=== PATIENT | male | born 1955 | race Caucasian/White ===

== ENCOUNTER → 2019-03-28 10:51 | Outpatient (BNVA) | payer MEDICARE, SELFPAY | PROVIDERS: Family Provider Registered Nurse; PCP Registered Nurse; Referring Provider Psychiatry & Neurology Psychiatry; Visit Provider Nurse Practitioner | DX: F33.41 Major depressive disorder, recurrent, in partial remission (principal); G47.30 Sleep apnea, unspecified | CPT/HCPCS: 99214 ==

== ENCOUNTER 2019-05-20 15:12 | Outpatient (CLI) | payer MEDICARE, SELFPAY ==
--- NOTE | 2019-05-20 15:33 | CT_ITS ---
WS: [id number] CT HEAD NONCONTRAST HISTORY: SWELLING TECHNIQUE: Contiguous axial imaging performed through the brain in 2.5 mm imaging. Bone and soft tiss ue windows. All CT scans at [facility] use at least one of these dose optimization techniq ues: automated exposure control; mA and/or kV adjustment per patient size (includes targeted exams wh ere dose is matched to clinical indication); or iterative reconstruction. DLP: 1058.18 mGycm COMPARISON: None available. No acute intracranial hemorrhage, midline shift or mass effect. No atrophy or prior infarcts or herniation. Ventricles: Normal size with no hydrocephalus. No inferior displacement of cerebellar tonsils. No soft tissue edema. Orbits and globes are negative. Paranasal sinuses: As visualized are clear. Mastoid air cells: Well pneumatized. Calvarium and scalp: Skull is intact with no soft tissue edema or swelling. CT/CT head wo con* [id number] IMPRESSION: Unremarkable noncontrast CT head. No abnormality.
--- NOTE | 2019-05-20 15:33 | CT_ITS ---
WS: [id number] CT NECK WITHOUT CONTRAST HISTORY: SWELLING, LEFT FACIAL/NECK SWELLING TECHNIQUE: Contiguous 5 mm axial images are performed through the neck with intravenous contrast. Sag ittal and coronal reformats are also submitted. All CT scans at [facility] use at least o ne of these dose optimization techniques: automated exposure control; mA and/or kV adjustment per pat ient size (includes targeted exams where dose is matched to clinical indication); or iterative recons truction. CONTRAST: CONTRAST: None DLP: 3091.97 mGycm COMPARISON: None available. Nasopharynx, oropharynx, hypopharynx and larynx are unremarkable. No soft tissue masses or abnormal e nhancement. Torus tubarius and fossa of Rosenmuller and parapharyngeal fat are normal. There are several benign-appearing lymph nodes along the cervical chains, greatest on the LEFT. Level 2 and level 3 lymph nodes with the largest measuring 6 to 7 mm. There is a solid mass in the inferior superficial lobe of the LEFT parotid gland. This mass measures 11 x 13 mm with overlying soft tissue edema and infiltration. This corresponds to the palpable abnorm ality. Small thyroid gland. RIGHT parotid gland is negative. Cervical spondylosis. No destructive bone process. Visualized portions of the skull base demonstrate no abnormalities. Orbits and globes are within norm al limits. No soft tissue masses. Visualized paranasal sinuses and mastoid air cells are normal. Lung apices are clear. CT/CT neck wo con [id number] IMPRESSION: 1. Solid mass superficial, inferior LEFT parotid gland measures 11 x 13 mm. Di fferential includes low-grade neoplasm and benign etiologies such as mixed pleo morphic adenoma and Warthin's tumor. Recommend follow-up with ENT. 2. Small cervical chain lymph nodes but no enlargement.
== END 2019-05-20 15:13 | disposition home or self-care (01) ==
LOC: RADWPI 15:16
PROVIDERS: Family Provider Registered Nurse; PCP Registered Nurse; Visit Provider Registered Nurse
DX: I89.8 Other specified noninfective disorders of lymphatic vessels and lymph nodes (principal); A46 Erysipelas; R22.1 Localized swelling, mass and lump, neck
CPT/HCPCS: 70450; 70490

== ENCOUNTER → 2019-05-22 13:37 | Outpatient (BNVA) | payer MEDICARE, SELFPAY | PROVIDERS: Family Provider Registered Nurse; PCP Registered Nurse; Visit Provider Otolaryngology | DX: K11.8 Other diseases of salivary glands (principal) | CPT/HCPCS: 99204; 99214 ==

== ENCOUNTER 2019-06-04 09:12 | Day surgery (SDC) | payer MEDICARE, SELFPAY ==
[2019-06-03 11:09] VITALS: BMI 34.2
[2019-06-04] VITALS (8 sets, daily range): BP systolic 133–143; BP diastolic 51–76; PULSE 65–97; RESP 13–25; TEMP 36.1–36.8; O2SAT 95–100
[2019-06-04] MEDS: sodium chloride 0.9% 1,000 ML 30 ML IV (10:00)
--- NOTE | 2019-06-04 11:02 | ANES.PREANE2 ---
Pre-Anesthetic Assessment Pre-Anesthetic Assessment: Height/Weight: Height 1.85 m Weight 117.934 kg Temp Pulse Resp BP Pulse Ox 97 F L 97 18 138/76 97 06/04/19 09:42 06/04/19 09:42 06/04/19 09:42 06/04/19 09:42 06/04/19 09:42 Preop Diagnosis: Left parotid mass Proposed Procedure: Operation Date: 06/04/19 11:35 Proposed Procedures p Left superficial parodictomy with flap reconstruction 54910 K11.8(Left) - Alfredo Galindo MD Was Beta Greg taken within 24 hours: N/A Last intake: Intake Last Liquid Date 06/03/19 Last Liquid Time 20:00 Last Solid Date 06/03/19 Last Solid Time 19:00 Social: Social History: No alcohol and No tobacco Exam: Pre-Anes Outpt Exam: alert, oriented x 3, clear to auscultation bilaterally and regular rate & rhythm Airway: Submandibular: WNL Cervical ROM: WNL MP: 2 Dentition: Full Pulmonary: Pulmonary: Sleep apnea CV/HEM: CV/HEM: HTN : : None reported Hepatic: Hepatic: None reported GI: GI: None reported Metabolic: Metabolic: Morbid obesity Musc/skel: Musc/skel: None reported Neuropsych: Neuropsych: Depression Anesthetic Plan: ASA status: 3 Anesthesia: General Risk of > 500 ml blood loss (7ml/kg in children): No PFSH Anesthesia PFSH: Medical History (Updated 06/03/19 @ 11:07 by Daniela Louis) Major depressive disorder, recurrent, 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
--- NOTE | 2019-06-04 13:38 | W.PM.OPSUD ---
Surgery/Procedure H&P Update DATE OF PROCEDURE: June 04, 2019 DATE H&P PERFORMED: 05/22/19 H&P UPDATE INFORMATION: I have reviewed H&P completed within last 30 days, I have examined patient prior to procedure and No changes to prior documentation PREOP DIAGNOSIS: Left parotid mass PLANNED PROCEDURE: Operation Date: 06/04/19 11:35 Proposed Procedures p Left superficial parodictomy with flap reconstruction 53217 K11.8(Left) - Alfredo Galindo MD
[2019-06-04] MEDS: neomycin-poly-bacitracin oint 28 gm 1 APPLIC TOPICAL (15:15)
--- NOTE | 2019-06-04 15:50 | SUR.PHASEI ---
1548 PATIENT TO PACU AT THIS TIME. RR EVEN AND UNLABORED, PLACED ON SIMPLE MASK AT 8L, SPO2 99%. DRESSING LEFT FACE, CDI.
--- NOTE | 2019-06-04 16:12 | SUR.PHASEI ---
1607 PATIENT TO OPS AT THIS TIME. RR EVEN AND UNLABORED. DRESSING TO LEFT FACE, CDI.
--- NOTE | 2019-06-04 16:16 | PM.PACU ---
PACU note Post-Anesthesia Exam: awake and vital signs stable Disposition: discharged
[2019-06-04] MEDS: acetaminophen-codeine 300-30mg Tablet 1 TAB PO (16:36)
--- NOTE | 2019-06-17 08:34 | PM.OP ---
Operative Report Date of procedure: June 17, 2019 Pre-op Diagnosis: Left parotid mass Post-op diagnosis: same Post-op Findings: left parotid mass Procedure Done: left superficial parotidectomy with sternocleidomastoid muscle rotation flap Pathology: left superficial parotid Surgeon: Alfredo Galindo Anesthesia: General Estimated blood loss (mL): 20 Complications: none Findings: left parotid masss Condition: stable Disposition: PACU Brief History: 64 year old male with left parotid mass. Procedure: The patient was taken to the operating room and under satisfactory general endotracheal anesthesia the face and neck were prepped draped and injected. A cervical parotid flap was raised and posterior to anterior direction. Dissection was carried down along the tragal pointer identifying the trunk of the facial nerve. Dissection was then carried anteriorly reflecting the superficial lobe of the parotid and the tumor which was located in the superficial lobe of the parotid into the wound bed. All branches of the facial nerve were preserved stimulation of the facial nerve throughout the procedure revealed all branches to be intact. Hemostasis was obtained with a combination of bipolar and Harmonic scalpel. The superiorly based sternocleidomastoid muscle flap was harvested and rotated over the wound bed. The incision was then closed in layered interrupted fashion with 3-0 chromic and 5-0 fast-absorbing suture. Carin was placed in the wound bed prior to closure. A compressive dressing was applied and the patient was allowed awaken and taken to the recovery room where he was observed. During the observation time postoperative care instructions and counseling including detailed written and verbal instructions were given to the patient and the patient's . Once all parties verbalized understanding of all instructions and once the patient met discharge criteria he was discharged in satisfactory and stable condition.
== END 2019-06-04 17:05 | disposition home or self-care (01) ==
PROVIDERS: Family Provider Registered Nurse; PCP Registered Nurse; Visit Provider Otolaryngology
PROC: (CPT 42410; principal; 2019-06-04 11:35)
DX: D11.0 Benign neoplasm of parotid gland (principal); G47.30 Sleep apnea, unspecified; F33.41 Major depressive disorder, recurrent, in partial remission; I10 Essential (primary) hypertension; E66.01 Morbid (severe) obesity due to excess calories; Z68.34 Body mass index [BMI] 34.0-34.9, adult
CPT/HCPCS: 14040; 42415; 12345; 88307; J0131; J0330; J1100; J1885; J2001; J2250; J2405; J2704; J2765; J3490; J7030

== ENCOUNTER → 2019-06-05 10:05 | Outpatient (BNVA) | payer MEDICARE, SELFPAY | PROVIDERS: Family Provider Registered Nurse; PCP Registered Nurse; Visit Provider Otolaryngology | DX: Z48.89 Encounter for other specified surgical aftercare (principal) | CPT/HCPCS: 99024 ==

== ENCOUNTER → 2019-06-09 14:35 | Outpatient (BNVA) | payer MEDICARE, SELFPAY | PROVIDERS: Family Provider Registered Nurse; PCP Registered Nurse; Visit Provider Otolaryngology | DX: K11.8 Other diseases of salivary glands (principal); J02.9 Acute pharyngitis, unspecified | CPT/HCPCS: 99024; 99214 ==

== ENCOUNTER → 2019-06-13 10:59 | Outpatient (BNVA) | payer MEDICARE, SELFPAY | PROVIDERS: Family Provider Registered Nurse; PCP Registered Nurse; Visit Provider Otolaryngology | DX: K11.8 Other diseases of salivary glands (principal); J02.9 Acute pharyngitis, unspecified; Z48.89 Encounter for other specified surgical aftercare | CPT/HCPCS: 99024; 99214 ==

== ENCOUNTER → 2019-07-02 11:37 | Outpatient (BNVA) | payer MEDICARE, SELFPAY | PROVIDERS: Family Provider Registered Nurse; PCP Registered Nurse; Visit Provider Registered Nurse | DX: B37.2 Candidiasis of skin and nail (principal); K11.3 Abscess of salivary gland | CPT/HCPCS: 87070; 87106 ==

== ENCOUNTER → 2019-09-16 08:31 | Outpatient (BNVA) | payer MEDICARE, SELFPAY | PROVIDERS: Family Provider Registered Nurse; PCP Registered Nurse; Visit Provider Urology | DX: N40.1 Benign prostatic hyperplasia with lower urinary tract symptoms (principal); G47.30 Sleep apnea, unspecified; R35.8 Other polyuria; N13.8 Other obstructive and reflux uropathy | CPT/HCPCS: 81001 ==

== ENCOUNTER → 2019-09-23 07:35 | Outpatient (BNVA) | payer MEDICARE, SELFPAY | PROVIDERS: Family Provider Registered Nurse; PCP Registered Nurse; Visit Provider Nurse Practitioner | DX: G47.30 Sleep apnea, unspecified (principal); F33.41 Major depressive disorder, recurrent, in partial remission | CPT/HCPCS: 99214 ==

== ENCOUNTER → 2019-10-28 10:30 | Outpatient (BNVA) | payer MEDICARE, SELFPAY | PROVIDERS: Family Provider Registered Nurse; PCP Registered Nurse; Visit Provider Urology | DX: N40.1 Benign prostatic hyperplasia with lower urinary tract symptoms (principal); G47.30 Sleep apnea, unspecified | CPT/HCPCS: 81001 ==

== ENCOUNTER → 2020-01-29 07:38 | Outpatient (BNVA) | payer MEDICARE, SELFPAY | PROVIDERS: Family Provider Registered Nurse; PCP Registered Nurse; Visit Provider Nurse Practitioner | DX: F33.41 Major depressive disorder, recurrent, in partial remission (principal); G47.30 Sleep apnea, unspecified | CPT/HCPCS: 99214 ==

== ENCOUNTER → 2020-07-23 10:34 | Outpatient (BNVA) | payer MEDICARE, SELFPAY | PROVIDERS: Family Provider Registered Nurse; PCP Registered Nurse; Visit Provider Registered Nurse | DX: R10.9 Unspecified abdominal pain (principal); K59.09 Other constipation; T14.8XXA Other injury of unspecified body region, initial encounter | CPT/HCPCS: 81000 ==

== ENCOUNTER → 2020-07-27 08:15 | Outpatient (BNVA) | payer MEDICARE, SELFPAY | PROVIDERS: Family Provider Registered Nurse; PCP Registered Nurse; Visit Provider Nurse Practitioner | DX: F33.41 Major depressive disorder, recurrent, in partial remission (principal); G47.30 Sleep apnea, unspecified | CPT/HCPCS: 99214 ==

== ENCOUNTER → 2020-11-01 10:27 | Outpatient (BNVA) | payer MEDICARE, SELFPAY | PROVIDERS: Family Provider Registered Nurse; PCP Registered Nurse; Visit Provider Registered Nurse | DX: Z20.822 Contact with and (suspected) exposure to COVID-19 (principal); J32.9 Chronic sinusitis, unspecified | CPT/HCPCS: 87635 ==

== ENCOUNTER → 2020-11-15 09:34 | Outpatient (BNVA) | payer MEDICARE, SELFPAY | PROVIDERS: Family Provider Registered Nurse; PCP Registered Nurse; Visit Provider Registered Nurse | DX: I10 Essential (primary) hypertension (principal); E03.9 Hypothyroidism, unspecified; E78.5 Hyperlipidemia, unspecified; E55.9 Vitamin D deficiency, unspecified; E53.8 Deficiency of other specified B group vitamins; R53.83 Other fatigue | CPT/HCPCS: 80053; 80061; 82306; 82607; 84443; 85025 ==

== ENCOUNTER → 2021-01-10 07:59 | Outpatient (BNVA) | payer MEDICARE, SELFPAY | PROVIDERS: Family Provider Registered Nurse; PCP Registered Nurse; Visit Provider Nurse Practitioner | DX: F33.41 Major depressive disorder, recurrent, in partial remission (principal) | CPT/HCPCS: 99214 ==

== ENCOUNTER → 2021-04-21 11:07 | Outpatient (BNVA) | payer MEDICARE, SELFPAY | PROVIDERS: Family Provider Registered Nurse; PCP Registered Nurse; Visit Provider Urology | DX: N40.1 Benign prostatic hyperplasia with lower urinary tract symptoms (principal) | CPT/HCPCS: 81003 ==

== ENCOUNTER 2021-05-30 10:33 | Outpatient (CLI) | payer MEDICARE, SELFPAY ==
--- NOTE | 2021-05-30 10:43 | CT_ITS ---
WS: [id number] CT HEAD NONCONTRAST HISTORY: R60.0 - Localized edema, pain and recurring headaches. TECHNIQUE: Contiguous axial imaging performed through the brain in 2.5 mm imaging. Bone and soft tiss ue windows. Sagittal and coronal reformats reviewed. All CT scans at [facility] use at least one of these dose optimization techniques: automated exposure control; mA and/or kV adjustment per pa tient size (includes targeted exams where dose is matched to clinical indication); or iterative recon struction. DLP: 1201.2 mGy.cm COMPARISON: 05/20/2019 No acute intracranial hemorrhage, midline shift or mass effect. Mild atrophy and mild chronic microvascular ischemic disease. No hemorrhage or sulcal effacement. Ventricles: Normal size with no hydrocephalus. No inferior displacement of cerebellar tonsils. Paranasal sinuses: Small amount of debris in the maxillary sinuses. No air-fluid levels. Mastoid air cells: Well pneumatized. Calvarium and scalp: Skull is intact with no soft tissue edema or swelling. CT/CT head wo con* [id number] IMPRESSION: 1. No acute intracranial hemorrhage or edema. 2. Mild atrophy and mild chronic small vessel ischemic disease.
== END 2021-05-30 10:34 | disposition home or self-care (01) ==
LOC: RAD 10:35
PROVIDERS: Family Provider Registered Nurse; PCP Registered Nurse; Visit Provider Registered Nurse
DX: R60.0 Localized edema (principal); G31.9 Degenerative disease of nervous system, unspecified
CPT/HCPCS: 70450

== ENCOUNTER → 2021-08-11 09:54 | Outpatient (BNVA) | payer MEDICARE, SELFPAY | PROVIDERS: Family Provider Registered Nurse; PCP Registered Nurse; Visit Provider Nurse Practitioner | DX: F33.41 Major depressive disorder, recurrent, in partial remission (principal) | CPT/HCPCS: 99214 ==

== ENCOUNTER → 2022-02-28 08:57 | Outpatient (BNVA) | payer MEDICARE, SELFPAY | PROVIDERS: Family Provider Registered Nurse; PCP Registered Nurse; Visit Provider Specialist | DX: R42 Dizziness and giddiness (principal); R26.9 Unspecified abnormalities of gait and mobility; G47.33 Obstructive sleep apnea (adult) (pediatric); G47.10 Hypersomnia, unspecified | CPT/HCPCS: 99204 ==

== ENCOUNTER 2022-03-03 20:22 | Outpatient (RCR) | payer MEDICARE, SELFPAY | END 2022-03-25 23:59 | disposition home or self-care (01) | LOC: SPT 20:22 | PROVIDERS: PCP Registered Nurse; Visit Provider Specialist | DX: R42 Dizziness and giddiness (principal) | CPT/HCPCS: 97162 ==

== ENCOUNTER → 2022-03-21 09:53 | Outpatient (BNVA) | payer MEDICARE, SELFPAY | PROVIDERS: Family Provider Registered Nurse; PCP Registered Nurse; Visit Provider Registered Nurse | DX: I10 Essential (primary) hypertension (principal); N40.1 Benign prostatic hyperplasia with lower urinary tract symptoms; Z00.00 Encounter for general adult medical examination without abnormal findings; Z71.3 Dietary counseling and surveillance; K59.09 Other constipation; Z71.85 Encounter for immunization safety counseling; E66.9 Obesity, unspecified; Z12.5 Encounter for screening for malignant neoplasm of prostate; Z23 Encounter for immunization | CPT/HCPCS: 80053; 80061; 84153; 85025 ==

== ENCOUNTER 2022-04-05 14:06 | Outpatient (CLI) | payer MEDICARE, SELFPAY ==
--- NOTE | 2022-04-05 14:30 | MR_ITS ---
WS: [id number] MRA ANGIOGRAPHY [place] OF REAL HISTORY: R42 - Dizziness and giddiness COMPARISON: None available. TECHNIQUE: 3-D MR angiography is performed of the ak chin of Real. All images are reviewed including source images. Distal vertebral and basilar arteries are intact with no significant stenosis or plaque. Fenestration at the junction of the vertebral arteries. Normal variant. Posterior cerebral arteries are normal co urse and caliber. Neither posterior communicating artery is well visualized. Intracranial portion of the internal carotid arteries are normal course and caliber. No significant a therosclerosis, stenosis or aneurysm identified. Middle and anterior cerebral arteries are both paten t with no significant disease. Anterior communicating artery is also normal. Hypoplastic but patent R IGHT A1 segment. MR/MR angio head wo con [id number] IMPRESSION: 1. No significant atherosclerotic plaque. 2. No aneurysm within the ak chin of Real. 3. Neither posterior communicating artery is well visualized. Probably normal variant. 4. Mildly hypoplastic RIGHT A1 segment.
== END 2022-04-05 14:07 | disposition home or self-care (01) ==
LOC: RAD 14:12
PROVIDERS: PCP Registered Nurse; Visit Provider Specialist
DX: R42 Dizziness and giddiness (principal)
CPT/HCPCS: 70544

== ENCOUNTER 2022-05-16 20:00 | Outpatient (CLI) | payer MEDICARE, SELFPAY | END 2022-05-16 20:01 | disposition home or self-care (01) | LOC: SLEEP 05-17 02:16 | PROVIDERS: PCP Registered Nurse; Visit Provider Specialist | DX: G47.33 Obstructive sleep apnea (adult) (pediatric) (principal) | CPT/HCPCS: 95811 ==

== ENCOUNTER → 2022-05-30 09:09 | Outpatient (BNVA) | payer MEDICARE, SELFPAY | PROVIDERS: PCP Registered Nurse; Visit Provider Specialist | DX: R42 Dizziness and giddiness (principal); G43.711 Chronic migraine without aura, intractable, with status migrainosus; G47.33 Obstructive sleep apnea (adult) (pediatric); G47.10 Hypersomnia, unspecified | CPT/HCPCS: 99214 ==

== ENCOUNTER → 2022-06-27 11:04 | Outpatient (BNVA) | payer MEDICARE, SELFPAY | PROVIDERS: PCP Registered Nurse; Visit Provider Registered Nurse | DX: J06.9 Acute upper respiratory infection, unspecified (principal); J02.9 Acute pharyngitis, unspecified | CPT/HCPCS: 85025 ==

== ENCOUNTER → 2022-09-06 13:36 | Outpatient (BNVA) | payer MEDICARE, SELFPAY | PROVIDERS: PCP Registered Nurse; Visit Provider Specialist | DX: G43.711 Chronic migraine without aura, intractable, with status migrainosus (principal); R42 Dizziness and giddiness; R26.89 Other abnormalities of gait and mobility | CPT/HCPCS: 99213 ==

== ENCOUNTER 2022-12-27 10:31 | Outpatient (RCR) | payer MEDICARE, SELFPAY | END 2023-01-22 13:33 | disposition home or self-care (01) | LOC: SPT 10:31 | PROVIDERS: PCP Registered Nurse; Visit Provider Registered Nurse | DX: M54.31 Sciatica, right side (principal) | CPT/HCPCS: 97110; 97161 ==

== ENCOUNTER → 2023-03-22 10:53 | Outpatient (BNVA) | payer MEDICARE, SELFPAY | PROVIDERS: PCP Registered Nurse; Visit Provider Registered Nurse | DX: Z00.00 Encounter for general adult medical examination without abnormal findings (principal); I10 Essential (primary) hypertension; Z71.3 Dietary counseling and surveillance; Z68.37 Body mass index [BMI] 37.0-37.9, adult; Z79.899 Other long term (current) drug therapy | CPT/HCPCS: 80053; 80061; 83036; 85025 ==

== ENCOUNTER → 2023-06-12 14:11 | Outpatient (BNVA) | payer MEDICARE, SELFPAY | PROVIDERS: PCP Registered Nurse; Visit Provider Podiatrist Foot & Ankle Surgery | DX: E11.9 Type 2 diabetes mellitus without complications (principal); L84 Corns and callosities; M21.619 Bunion of unspecified foot; M20.42 Other hammer toe(s) (acquired), left foot | CPT/HCPCS: 99203 ==

== ENCOUNTER → 2023-07-27 13:55 | Outpatient (BNVA) | payer MEDICARE, SELFPAY | PROVIDERS: PCP Registered Nurse; Visit Provider Specialist | DX: G43.711 Chronic migraine without aura, intractable, with status migrainosus (principal) | CPT/HCPCS: 99214; 99215 ==

== ENCOUNTER → 2023-12-10 12:57 | Outpatient (BNVA) | payer MEDICARE, SELFPAY | PROVIDERS: PCP Registered Nurse; Visit Provider Podiatrist Foot & Ankle Surgery | DX: L84 Corns and callosities; M20.42 Other hammer toe(s) (acquired), left foot; L60.3 Nail dystrophy; E11.69 Type 2 diabetes mellitus with other specified complication | CPT/HCPCS: 99213 ==

== ENCOUNTER → 2024-06-09 13:18 | Outpatient (BNVA) | payer MEDICARE, SELFPAY | PROVIDERS: PCP Registered Nurse; Visit Provider Podiatrist Foot & Ankle Surgery | DX: E11.42 Type 2 diabetes mellitus with diabetic polyneuropathy (principal); L60.3 Nail dystrophy; L84 Corns and callosities; G62.9 Polyneuropathy, unspecified; M20.42 Other hammer toe(s) (acquired), left foot; M25.872 Other specified joint disorders, left ankle and foot | CPT/HCPCS: 11721; 99213 ==

== ENCOUNTER → 2024-12-17 15:02 | Outpatient (BNVA) | payer MEDICARE, SELFPAY | PROVIDERS: PCP Registered Nurse; Visit Provider Podiatrist Foot & Ankle Surgery | DX: E11.8 Type 2 diabetes mellitus with unspecified complications (principal); L60.3 Nail dystrophy; L84 Corns and callosities; M20.40 Other hammer toe(s) (acquired), unspecified foot; G62.9 Polyneuropathy, unspecified | CPT/HCPCS: 99213 ==

== ENCOUNTER → 2025-02-25 14:07 | Outpatient (BNVA) | payer MEDICARE, SELFPAY | PROVIDERS: PCP Registered Nurse; Visit Provider Podiatrist Foot & Ankle Surgery | DX: E11.42 Type 2 diabetes mellitus with diabetic polyneuropathy (principal); L60.3 Nail dystrophy; L84 Corns and callosities; E11.8 Type 2 diabetes mellitus with unspecified complications; G62.9 Polyneuropathy, unspecified; Z79.84 Long term (current) use of oral hypoglycemic drugs; G57.81 Other specified mononeuropathies of right lower limb | CPT/HCPCS: 11055; 11721; 99213 ==